=== PATIENT | male | born 1955 | race Caucasian/White ===

== ENCOUNTER 2020-02-08 09:06 | Emergency (ER) | payer OTHER, MEDICARE ==
--- NOTE | 2020-02-08 09:55 | UC ---
Throat Pain/Nasal Harshal HPI - HPI Summary HPI Summary: 64 yo male presents with flu-like symptoms. He tells me that yesterday he developed fatigue, body aches, nausea, dry cough, loose stool, and decreased appetite. He feels better today. He ate breakfast this morning. Did not get a flu shot. Nothing OTC for symptoms. Denies fever, sinus symptoms, sore throat, SOB, chest pain, abdominal pain, vomiting, dysuria. - History of Current Complaint Stated Complaint: CONGESTION NAUSEA DIARRHEA Time Seen by Provider: 02/08/20 09:55 Hx Obtained From: Patient Onset/Duration: Sudden Onset Severity: Mild Pain Intensity: 3 Pain Scale Used: 0-10 Numeric - Allergies/Home Medications Allergies/Adverse Reactions: Allergies Allergy/AdvReac Type Severity Reaction Status Date / Time No Known Allergies Allergy Verified 02/08/20 09:59 Home Medications: Home Medications Allopurinol TAB* [Zyloprim 100 MG TAB*] 100 mg PO DAILY 02/08/20 [History Confirmed 02/08/20] PMH/Surg Hx/FS Hx/Imm Hx - Additional Past Medical History Additional PMH: HTN Gout - Surgical History Surgical History: Yes Surgery Procedure, Year, and Place: TONSILLECTOMY. POLYP REMOVED FROM EYE LID - Family History Known Family History: Positive: Diabetes - Social History Lives: With Family Alcohol Use: Occasionally Alcohol Amount: 1 beer monthly Substance Use Type: None Smoking Status (MU): Current Some Day Smoker Type: Smokeless Tobacco Amount Used/How Often: 1 tin of smokeless tobacco in a year Review of Systems All Other Systems Reviewed And Are Negative: No Constitutional: Positive: Fatigue, Other - Body aches Skin: Positive: Negative Eyes: Positive: Negative ENT: Positive: Negative Respiratory: Positive: Cough Cardiovascular: Positive: Negative Gastrointestinal: Positive: Diarrhea, Nausea Genitourinary: Positive: Negative Neurological/Mental Status: Positive: Negative Psychological: Positive: Negative Physical Exam - Summary Physical Exam Summary: GENERAL: NAD. WDWN. No pain distress. SKIN: No rashes, sores, lesions, or open wounds. HEENT: Head: AT/NC Eyes: EOM intact. Conjunctiva clear without inflammation or discharge. Ears: Hearing grossly normal. TMs intact, no bulging, erythema, or edema. Nose: Nasal mucosa pink and moist. NTTP maxillary and frontal sinus. Throat: Posterior oropharynx without exudates, erythema, or tonsillar enlargement. Uvula midline. NECK: Supple. Nontender. No lymphadenopathy. CHEST: CTAB. No r/r/w. No accessory muscle use. Breathing comfortably and in no distress. CV: RRR. Pulses intact. Cap refill <2seconds ABDOMEN: Soft. NTTP. No distention or guarding. No CVA tenderness. Bowel sounds present NEURO: Alert. PSYCH: Age appropriate behavior. Triage Information Reviewed: Yes Vital Signs: Vital Signs: Temp Pulse Resp BP Pulse Ox 97.8 F 70 18 195/84 99 02/08/20 09:54 02/08/20 09:54 02/08/20 09:54 02/08/20 09:54 02/08/20 09:54 Laboratory Tests 02/08/20 10:12 Influenza A (Rapid) Negative Influenza B (Rapid) Negative Vital Signs: Temp Pulse Resp BP Pulse Ox 97.8 F 70 18 130/78 99 02/08/20 09:54 02/08/20 09:54 02/08/20 09:54 02/08/20 10:52 02/08/20 09:54 Vital Signs Reviewed: Yes Throat Pain/Nasal Course/Dx - Course Course Of Treatment: POC flu negative. Suspect viral illness - he is feeling better today. Encouraged advancing diet as tolerated and fluids. BP elevated today, but manual recheck improved. - Differential Dx/Diagnosis Provider Diagnosis: Viral syndrome Discharge ED - Sign-Out/Discharge Documenting (check all that apply): Patient Departure All imaging exams completed and their final reports reviewed: No Studies - Discharge Plan Condition: Stable Disposition: HOME Patient Education Materials: Viral Syndrome (ED) Forms: *Work Release Referrals: Devan Cat MD [Primary Care Provider] - Additional Instructions: Your blood pressure was high at todays visit. Please see your primary provider within 4 weeks for recheck and re-evaluation. Your symptoms are likely from a viral infection. Viral infections do not respond to antibiotics and are limited to the treatment of symptoms. Viral infections typically run their course in 7-10 days. Drink plenty of fluids, especially if you are running any fever. Use salt water gargles several times a day. Take over the counter acetaminophen (Tylenol) or ibuprofen (Advil, Motrin) according to directions as needed for pain or fever. You may also use Chloraseptic spray or Cepacol lonzenges according to directions which contain a numbing medication and can provide some temporary relief from a sore throat. Return here or follow up with your primary care provider in 7 days if symptoms persist. - Billing Disposition and Condition Condition: STABLE Disposition: Home - Attestation Statements Provider Attestation: This patient was not seen by me. I was available for consult. Chart reviewed. RAZIA
[2020-02-08 10:24] LABS: Influenza A Molecular Negative (Negative); Influenza B Molecular Negative (Negative)
[2020-02-08 10:53] VITALS: BP 130/78
== END 2020-02-08 10:49 | disposition home or self-care (01) ==
LOC: UCEAST 09:06
DX: B34.9 Viral infection, unspecified (principal); R53.83 Other fatigue; R11.0 Nausea; R05 Cough; R52 Pain, unspecified; R19.7 Diarrhea, unspecified; R63.8 Other symptoms and signs concerning food and fluid intake; I10 Essential (primary) hypertension; M10.9 Gout, unspecified; F17.290 Nicotine dependence, other tobacco product, uncomplicated
CPT/HCPCS: 99211; G0463

== ENCOUNTER 2023-12-10 13:42 | Observation (INO) ==
[2023-12-10 14:07] LABS: ABS Basophils 0.1 10^3/uL (0.0-0.1); ABS Lymphocytes 1.5 10^3/uL (1.0-4.8); ABS Monocytes 0.4 10^3/uL (0.0-1.1); ABS Neutrophils 11.9 10^3/uL (1.5-7.6); ABS Nucleated RBC 0.01 10^3/ul; Hematocrit 47.4 % (38-53); Hemoglobin 16.1 g/dL (13.2-16.3); Mean Corpuscular Hemoglobin 31.1 pg (27-33); Mean Corpuscular Volume 91.6 fL (80-97); Nucleated Red Blood Cells % 0.1 %/100WBC (0.0-0.8); Platelet Count 186 10^3/uL (150-450); Red Blood Count 5.17 10^6/uL (4.06-5.63); Red Cell Distribution Width 13.5 % (12-17); White Blood Count 13.9 10^3/uL (3.6-10.2)
[2023-12-10 14:28] LABS: Albumin 4.5 g/dL (3.2-5.2); Albumin/Globulin Ratio 1.3 (1-3); Calcium 9.4 mg/dL (8.6-10.3); Creatinine, Serum 1.1 mg/dL (0.67-1.17); Globulin 3.5 g/dL (2-4); Potassium 4.2 mmol/L (3.5-5.0); Total Bilirubin 0.5 mg/dL (0.2-1.0); eGFR CKD-EPI 72.7 (>60)
[2023-12-10 15:02] LABS: INR 1.11 (0.83-1.13)
[2023-12-10 15:50] LABS: High Sensitivity Troponin 1 Hr 21 pg/mL (<20)
[2023-12-10 15:56] LABS: Urine Appearance Clear; Urine Bilirubin Negative (Negative); Urine Blood Negative (Negative); Urine Color Yellow; Urine Glucose 3+(>=500 mg/dL) (Negative); Urine Ketones Negative (Negative); Urine Nitrite Negative (Negative); Urine Protein Negative (Negative); Urine Specific Gravity 1.018 (1.002-1.030); Urine Urobilinogen Negative (Negative)
[2023-12-10] MEDS ORDERED: Iohexol 350 (CONTRAST) 500 ML MDV IV ONE (15:58)
[2023-12-10 18:24] LABS: Rapid COVID-19 Molecular Undetected (Undetected)
[2023-12-10 18:53] LABS: HDL Cholesterol 45.3 mg/dL
[2023-12-10] MEDS ORDERED: Enoxaparin 40 MG/0.4 ML SYR SUBCUT SCH (20:00)
[2023-12-11 06:41] LABS: ABS Eosinophils 0.1 10^3/uL (0.0-0.5); ABS Lymphocytes 3.2 10^3/uL (1.0-4.8); ABS Monocytes 0.8 10^3/uL (0.0-1.1); ABS Neutrophils 5.9 10^3/uL (1.5-7.6); ABS Nucleated RBC 0.01 10^3/ul; Eosinophil % 1.3 %; Hematocrit 44.6 % (38-53); Hemoglobin 15.3 g/dL (13.2-16.3); Lymphocyte % 31.6 %; Mean Corpuscular Hemoglobin 31.2 pg (27-33); Mean Corpuscular Hgb Conc 34.2 g/dL (31-36); Mean Corpuscular Volume 91.2 fL (80-97); Mean Platelet Volume 9.4 fL (7.5-11.2); Nucleated Red Blood Cells % 0.1 %/100WBC (0.0-0.8); Platelet Count 175 10^3/uL (150-450); Red Blood Count 4.89 10^6/uL (4.06-5.63); Red Cell Distribution Width 13.3 % (12-17)
[2023-12-11 07:08] LABS: Calcium 8.5 mg/dL (8.6-10.3); Creatinine, Serum 1.08 mg/dL (0.67-1.17); Magnesium 2.2 mg/dL (1.9-2.7); Potassium 3.6 mmol/L (3.5-5.0); eGFR CKD-EPI 74.3 (>60)
[2023-12-11] MEDS ORDERED: Aspirin EC 81 mg TAB.EC (enteric coated) PO SCH (09:00)
[2023-12-11] MEDS ORDERED: Regadenoson 0.4 MG/5 ML SYRINGE ONE (09:18)
[2023-12-11] MEDS ORDERED: Aminophylline 25 MG/ML VIAL ONE (09:18)
[2023-12-11 16:52] VITALS: BP 132/80
== END 2023-12-11 18:00 | disposition home or self-care (01) ==
LOC: EDHOLD 13:42 → ED 13:42 → MEDTELE 12-11 01:25
PROVIDERS: ADMIT Student in an Organized Health Care Education/Training Program; ATTEND Student in an Organized Health Care Education/Training Program